=== PATIENT | male | born 1980 | race Caucasian/White ===

== ENCOUNTER 2023-10-05 12:42 | Emergency (ER) | payer BC, SELFPAY ==
[2023-10-05 12:46] VITALS: BP 180/110; PULSE 91; RESP 14; TEMP 36.1; O2SAT 98; BMI 32.5
[2023-10-05 13:21] LABS: Appearance Urine UA CLEAR; Bilirubin Urine UA NEGATIVE (NEGATIVE); Color Urine UA YELLOW; Glucose Urine UA NEGATIVE (Negative); Ketones Urine UA NEGATIVE (NEGATIVE); Leukocyte Esterase Urine UA TRACE (NEGATIVE); Nitrite Urine UA NEGATIVE (Negative); Occult Blood Urine UA NEGATIVE (Negative); Protein Urine UA NEGATIVE (Negative); Specific Gravity Urine UA 1.015 (1.000-1.035); Urobilinogen Urine UA 0.2 E.U./dL (0.2); pH Urine UA 7.5 (4.5-8.0)
[2023-10-05 13:30] LABS: Bacteria Urine Occasional (0-1); Culture Indicated Urine Specimen Cultured; RBC Urine 1-5/HPF (0-5/HPF); Squamous Epithelial Cell Urine None Seen (0-5/HPF); Urine Volume 10mL (spun); WBC Urine 5-10/HPF (0-5/HPF)
--- NOTE | 2023-10-05 13:37 | ED.MALEGU ---
HPI - Male Genitourinary <NAVJOT Fraser - Last Filed: 10/05/23 15:15> General Chief complaint: Urogenital-Male Stated complaint: Stomach issues/V/Burning w/ urination Time Seen by Provider: 10/05/23 13:19 Source: patient Mode of arrival: Ambulatory History of Present Illness HPI Narrative: 42-year-old male, smokeless tobacco user, presents emergency department with 10 day history of nausea and vomiting and dysuria. Patient does endorse that he was in [place] approximately 45 days ago, where he did have protected intercourse. Patient reports that he is able to drink and eat, but has been vomiting almost every morning, and then again throughout the day. Patient denies any abdominal pain, testicular pain, scrotal swelling or penile discharge. Related Data Allergies Allergy/AdvReac Type Severity Reaction Status Date / Time No Known Drug Allergies Allergy Verified 10/05/23 12:46 Review of Systems <NAVJOT Fraser - Last Filed: 10/05/23 15:15> Review of Systems Narrative: Narrative: See HPI. GENERAL: Denies chills, fatigue, fever, sweats. HEENT: Denies sinus pain, ear pain, sore throat, difficulty swallowing, dizziness. RESPIRATORY: Denies dyspnea, cough, wheezing, sputum. CARDIOVASCULAR: Denies chest pain, palpitations, edema. GASTROINTESTINAL: Denies abdominal pain, diarrhea, constipation. Endorses nausea and vomiting. : Denies frequency, incontinence, hematuria, urinary retention, flank pain. Endorses dysuria and cloudy urine. MSK: Denies weakness, joint pain, or bony pain. SKIN: Denies rash, skin lesions, or pruritis. NEUROLOGIC: Denies weakness, dizziness, headache, numbness, confusion. PSYCHIATRIC: No concerning psychosocial issues. Patient History <NAVJOT Fraser - Last Filed: 10/05/23 15:15> tobacco type: smokeless tobacco alcohol intake frequency: holidays/special occasions only Substance Use Type: marijuana Exam <NAVJOT Fraser - Last Filed: 10/05/23 15:15> Narrative Exam Narrative: Exam Narrative: GENERAL: This is a well-nourished, well-developed patient, in no acute distress. HEAD: Atraumatic. Normocephalic. EYES: Pupils equal round and reactive. Extraocular motions intact. No scleral icterus, injection or drainage. ENT: Nose without bleeding, purulent drainage. Airway patent. NECK: Trachea midline. No JVD or lymphadenopathy. Nontender. CARDIOVASCULAR: Regular rate and rhythm without murmurs, peripheral pulses intact, cap refill <2 sec. RESPIRATORY: Breath sounds equal and clear bilaterally. No wheezes, rales, or rhonchi. No cough. No increased respiratory effort. No accessory muscle use. GASTROINTESTINAL: Abdomen soft, non-tender, nondistended without guarding or rebound. No suprapubic pain. : Circumcised, no testicular pain or scrotal swelling. MSK: Moves all extremities. Normal range of motion, no clubbing or edema. Neurovascularly intact. NEURO: A&O x 3. SKIN: Warm, dry, no rashes or lesions noted. Initial Vital Signs Initial Vital Signs: Vital Signs Temperature 97.0 F L 10/05/23 12:46 Pulse Rate 91 H 10/05/23 12:46 Respiratory Rate 14 10/05/23 12:46 Blood Pressure 180/110 H 10/05/23 12:46 Pulse Oximetry 98 10/05/23 12:46 Oxygen Delivery Method Room Air 10/05/23 12:46 Reviewed <Tarah Tilley DO - Last Filed: 10/07/23 07:24> Initial Vital Signs Initial Vital Signs: Vital Signs Temperature 97.0 F L 10/05/23 12:46 Pulse Rate 91 H 10/05/23 12:46 Respiratory Rate 14 10/05/23 12:46 Blood Pressure 180/110 H 10/05/23 12:46 Pulse Oximetry 98 10/05/23 12:46 Oxygen Delivery Method Room Air 10/05/23 12:46 Course <NAVJOT Fraser - Last Filed: 10/05/23 15:15> Orders Ordered: Discontinued Medications Azithromycin (Azithromycin 250 Mg Tablet) 1,000 mg PO NOW ONE Stop: 10/05/23 15:05 Last Admin: 10/05/23 15:12 Dose: 1,000 mg Documented By: KENYETTA Vital Signs Vital signs: Vital Signs - 8 hr 10/05/23 12:46 Temperature 97.0 F L Pulse Rate 91 H Respiratory Rate 14 Blood Pressure 180/110 H Pulse Oximetry 98 Oxygen Delivery Method Room Air <Tarah Tilley DO - Last Filed: 10/07/23 07:24> Orders Ordered: Discontinued Medications Azithromycin (Azithromycin 250 Mg Tablet) 1,000 mg PO NOW ONE Stop: 10/05/23 15:05 Last Admin: 10/05/23 15:12 Dose: 1,000 mg Documented By: KENYETTA Vital Signs Vital signs: Vital Signs - 8 hr 10/05/23 12:46 Temperature 97.0 F L Pulse Rate 91 H Respiratory Rate 14 Blood Pressure 180/110 H Pulse Oximetry 98 Oxygen Delivery Method Room Air MDM - Male Genitourinary <NAVJOT Fraser - Last Filed: 10/05/23 15:15> Differential Diagnosis Differential diagnosis: Likely urinary tract infection and other (Gonorrhea, chlamydia, viral illness) Lab Data Labs: Lab Results 10/05/23 Range/Units 12:50 Urine Color Yellow Urine Appearance Clear Urine pH 7.5 (4.5-8.0) Ur Specific [place] 1.015 (1.000-1.035) Urine Protein Negative (Negative) Urine Glucose (UA) Negative (Negative) g/dL Urine Ketones Negative (NEGATIVE) Urine Occult Blood Negative (Negative) Urine Nitrate Negative (Negative) Urine Bilirubin Negative (NEGATIVE) Urine Urobilinogen 0.2 (0.2) E.U./dL Ur Leukocyte Esterase Trace H (NEGATIVE) Urine RBC 1-5/hpf (0-5/HPF) Urine WBC 5-10/hpf H (0-5/HPF) Ur Squamous Epith Cells None seen (0-5/HPF) Urine Bacteria Occasional (0-1) (None) Ur Culture Indicated? Specimen cultured Vol Urine Centrifuged 10ml (spun) Ur Chlamydia DNA (PCR) Detected H N gonorrhoeae DNA (PCR) Not detected [facility] Narrative Medical decision making narrative: 42-year-old male with dysuria. Assessment was encouraging and point of care urine dip was not completely consistent with a UTI, trace leuks only. GC chlamydia test came back positive for chlamydia and negative for gonorrhea. Will treat with 1 g of azithromycin. I suspect patient's nausea and vomiting may be related to the infection with chlamydia. Patient is able to drink normal amounts of fluids without difficulty. Recommended hydrating well, getting plenty of rest and follow up with family doctor as needed. For any worsening symptoms that include chest pain, shortness of breath, inability to tolerate any fluids or food, to return to the emergency department. Patient verbalized understanding and was agreeable course of action. <Tarah Tilley, DO - Last Filed: 10/07/23 07:24> Lab Data Labs: Lab Results 10/05/23 Range/Units 12:50 Urine Color Yellow Urine Appearance Clear Urine pH 7.5 (4.5-8.0) Ur Specific [place] 1.015 (1.000-1.035) Urine Protein Negative (Negative) Urine Glucose (UA) Negative (Negative) g/dL Urine Ketones Negative (NEGATIVE) Urine Occult Blood Negative (Negative) Urine Nitrate Negative (Negative) Urine Bilirubin Negative (NEGATIVE) Urine Urobilinogen 0.2 (0.2) E.U./dL Ur Leukocyte Esterase Trace H (NEGATIVE) Urine RBC 1-5/hpf (0-5/HPF) Urine WBC 5-10/hpf H (0-5/HPF) Ur Squamous Epith Cells None seen (0-5/HPF) Urine Bacteria Occasional (0-1) (None) Ur Culture Indicated? Specimen cultured Vol Urine Centrifuged 10ml (spun) Ur Chlamydia DNA (PCR) Detected H N gonorrhoeae DNA (PCR) Not detected Discharge Plan Departure Patient Disposition: Home Clinical Impression: Chlamydia Instructions: DI for Chlamydia Activity Restrictions/Additional Instructions: *You have been diagnosed with chlamydia. We have treated your chlamydia with a 1 time medication (azithromycin). Please make sure you get plenty of rest and hydrate well, and I would expect your nausea and vomiting to resolve. You should refrain from any sexual intercourse until symptoms have fully resolved. You should follow up with your family doctor for a full STD panel. For any worsening symptoms that include chest pain, shortness of breath, inability to keep any water down, please return to the emergency department. Otherwise, follow up with your family doctor as needed. *What to do: *Please continue to take your regular medications as directed. [ ] New medication prescriptions sent to your pharmacy: [ ] [ ] New medication written as a paper prescription [x ] No new medications given *Please follow up with your primary care provider in 2-3 days, call for an appointment. Let them know you were seen in the Emergency Department and that we ask that you be seen in follow up. We will electronically transmit a record of today's note if your PCP is in our system *If you do not have a primary care provider please contact the [facility] Resource line at [phone]. They will ask some questions about your medical history and help get you set up with a doctor in the community. ? Return to ER if you should have any new, worsening or concerning symptoms, such as worsening pain, severe headache, confusion, chest pain, difficulty breathing, fever greater than 101 F, shaking chills, persistent vomiting to the point that you cannot drink fluids, or other new or worsening symptoms. Stand Alone Forms: Patient Portal/API ED Sign-out <Tarah Tilley DO - Last Filed: 10/07/23 07:24> Cosign ED Attending Costhiature Attestation: I was immediately available in the department for consultation.
[2023-10-05 14:23] LABS: Urine N gonorrhoeae NOT DETECTED
[2023-10-05 14:56] LABS: Urine Chlamydia DETECTED
[2023-10-05] MEDS: AZITHROMYCIN 250 MG TABLET 1000 MG PO (15:12)
[2023-10-05 15:19] VITALS: BP 157/111; PULSE 87; RESP 14; O2SAT 99
== END 2023-10-05 15:21 | disposition home or self-care (01) ==
PROVIDERS: Emergency Medicine; Emergency Provider Registered Nurse
DX: A74.9 Chlamydial infection, unspecified (principal); R11.2 Nausea with vomiting, unspecified
CPT/HCPCS: 81001; 87086; 87491; 87591; 99283